=== PATIENT | male | born 1955 | race Caucasian/White ===

== ENCOUNTER → 2022-01-20 15:17 | Outpatient (CLI) | payer OTHER, SELFPAY ==
--- NOTE | 2022-01-20 15:20 | DI.US.S_ITS ---
PROCEDURE: US EXTREMITY NONVASC LOWER LT INDICATIONS: LEFT KNEE PAIN ?BAKERS CYST RUPTURE TECHNIQUE: Real-time scanning was performed of the left knee , with image documentation. COMPARISON: None. FINDINGS: No areas of fluid collection. No solid masses or areas of cystic change. IMPRESSION: No abnormality identified at the area of concern. Dictated by: Kaela Shin M.D. on 01/21/2022 at 17:01 Approved by: Kaela Shin M.D. on 01/21/2022 at 17:01
== END ==
PROVIDERS: Referring Provider Orthopaedic Surgery; Visit Provider Orthopaedic Surgery
DX: M25.562 Pain in left knee (principal)
CPT/HCPCS: 76882

== ENCOUNTER 2023-07-20 15:20 | Emergency (ER) | payer SELFPAY ==
[2023-07-20] VITALS (14 sets, daily range): BP systolic 182–239; BP diastolic 83–109; PULSE 63–86; RESP 12–25; TEMP 36.4–36.6; O2SAT 97–100; BMI 27.0
--- NOTE | 2023-07-20 15:41 | DI.RAD.S_ITS ---
PROCEDURE: XR CHEST 1V INDICATIONS: Chest pain TECHNIQUE: One view of the chest was acquired. COMPARISON: None. FINDINGS: Surgical changes and devices: None. Lungs and pleura: Lungs are clear. No pleural effusions or pneumothorax. Mediastinum: Mediastinal contours appear normal. Heart size is normal. Bones and chest wall: No suspicious bony lesions. Overlying soft tissues appear unremarkable. IMPRESSION: No acute cardiopulmonary abnormality is seen. Dictated by: Wilmer Restrepo M.D. on 07/20/2023 at 16:34 Approved by: Wilmer Restrepo M.D. on 07/20/2023 at 16:34
[2023-07-20 15:55] LABS: Add Manual Diff / Slide Review NO; Basophils Absolute Auto 100 /uL (0-100); Basophils Percent Auto 0.5 % (0-2); Eosinophils Absolute Auto 100 /uL (0-450); Eosinophils Percent Auto 0.7 % (2-4); Hematocrit 48.5 % (41-53); Hemoglobin 16.5 g/dL (13.5-17.5); Lymphocytes Absolute Auto 2400 /uL (1100-4500); Mean Corpuscular Hemoglobin 30.3 PG (26-34); Mean Corpuscular Volume 89.2 fL (80-100); Monocytes Absolute Auto 800 /uL (0-900); Monocytes Percent Auto 7.5 % (3-14); Neutrophils Absolute Auto 7200 /uL (1500-7000); Neutrophils Percent Auto 68.3 % (50-75); Platelet Count 138 X10^3/uL (150-400); Red Blood Cell Count 5.44 X10^6/uL (4.5-5.9); Red Cell Distribution Width 13.7 % (11.6-14.8); White Blood Cell Count 10.5 X10^3/uL (4.5-11.0)
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
[2023-07-20 16:14] LABS: Alanine Aminotransferase 19 IU/L (<50); Albumin 4.7 g/dL (3.5-5.0); Albumin Globulin Ratio 1.6 (1.0-2.8); Alkaline Phosphatase 64 U/L (38-126); Aspartate Aminotransferase 29 IU/L (17-59); BUN Creatinine Ratio 17.5 (6-22); Bilirubin Total 0.9 mg/dL (0.2-1.3); Blood Urea Nitrogen 14 mg/dL (9-20); Calcium 8.8 mg/dL (8.4-10.2); Carbon Dioxide 25 mmol/L (22-32); Chloride 106 mmol/L (98-107); Creatine Kinase 77 U/L (55-170); Estimated Glomerular Filt Rate > 60 mL/min (>60); Globulin 2.9 g/dL (1.7-4.1); Glucose 95 mg/dL (80-110); HEMOLYSIS 86 (0-50); Lipase 62 U/L (23-300); Sodium 138 mmol/L (137-145); Total Protein 7.6 g/dL (6.3-8.2)
[2023-07-20 16:15] LABS: Potassium 4.4 mmol/L (3.4-5.1)
[2023-07-20] MEDS: PROPRANOLOL 10 MG TABLET PO (16:15)
[2023-07-20 16:25] LABS: Troponin I < 0.012 ng/mL (0.01-0.034)
[2023-07-20] MEDS: lisinopriL 10 MG TABLET PO (17:36)
== END 2023-07-20 18:25 | disposition home or self-care (01) ==
PROVIDERS: Emergency Provider Emergency Medicine
DX: I10 Essential (primary) hypertension (principal); F17.200 Nicotine dependence, unspecified, uncomplicated
CPT/HCPCS: 36415; 71045; 80053; 82550; 83690; 84484; 85025; 93005; 99284